=== PATIENT | male | born 1945 | race Caucasian/White ===

== ENCOUNTER 2016-12-18 10:39 | Emergency (ER) | payer MEDICARE, OTHER ==
[~2016-12-18] VITALS: Ht 175.3 cm; Wt 108.9 kg
[2016-12-18 11:00] VITALS: BP 115/56; PULSE 51; RESP 16; TEMP 98.2; O2SAT 99
--- NOTE | 2016-12-18 11:05 | NUR ---
PLACED IN BED 5
--- NOTE | 2016-12-18 11:07 | NUR ---
ER at bedside examining patient.
--- NOTE | 2016-12-18 11:10 | NUR ---
Pt presents to ED c/o LLE pain and brusing to foot .Pt currently taking coumadin. Pt denies syncope , head or neck trauma.Pt declined medication for pain upon assessment. Pt reports taking [employer] prior to ED visit.
[2016-12-18] MEDS ORDERED: HYDROcodone/ACETAMIN 5-325 MG TAB (NORCO/ VICODIN) PO ONE (12:45)
--- NOTE | 2016-12-18 12:46 | NUR ---
Pt medicated for pain. Pt tolerated well.
--- NOTE | 2016-12-18 13:15 | NUR ---
posterior LLE splint applied. Pt tolerated well.
[2016-12-18 13:57] VITALS: BP 118/59; PULSE 62; RESP 16; TEMP 98.2; O2SAT 99
--- NOTE | 2016-12-18 13:57 | NUR ---
Patient given written and verbal discharge instructions and verbalizes understanding. ER MD discussed with patient the results and treatment provided. Given copies of tests performed in ER. Patient in stable condition. ID arm band removed. Patient educated on pain management and to follow up with PMD. Pain Scale 2. Opportunity for questions provided and answered.
== END 2016-12-18 13:57 | disposition home or self-care (01) ==
LOC: SED 10:39
DX: S82.52XA Displaced fracture of medial malleolus of left tibia, initial encounter for closed fracture (principal); J44.9 Chronic obstructive pulmonary disease, unspecified; I10 Essential (primary) hypertension; I48.91 Unspecified atrial fibrillation; Z88.8 Allergy status to other drugs, medicaments and biological substances; W23.0XXA Caught, crushed, jammed, or pinched between moving objects, initial encounter; Y93.89 Activity, other specified; Y99.8 Other external cause status; Y92.89 Other specified places as the place of occurrence of the external cause
CPT/HCPCS: 99284

== ENCOUNTER 2020-08-26 11:03 | Inpatient (IN) | payer OTHER, SELFPAY ==
[~2020-08-26] VITALS: Ht 175.3 cm; Wt 78.0 kg
[~2020-08-26 11:03] MED LIST: APIX5TAB PO; ASPI-1155 PO; CEPH-568 PO; FURO-150 PO; HYDR-4274 PO; HYDR100T25 PO; LIP20 PO; METO-442 PO; SERT100T PO; STA120 PO; TEMA30CA PO; TRIA1KT.2 TP; TRIA80OI TP
[2020-08-26 11:12] VITALS: BP_SYST 120
[2020-08-26 12:24] LABS: EOSINOPHILS # (AUTO) 0.1 K/uL (0.0-0.4); MONOCYTES % (AUTO) 11.5 % (1.7-9.3)
[2020-08-26 12:36] LABS: BASOPHILS # (AUTO) 0.1 K/uL (0.0-0.2); BASOPHILS % (AUTO) 1.2 % (0.0-2.0); HEMATOCRIT 40.6 % (36-54); HEMOGLOBIN 13.2 g/dL (14.0-18.0); INR 1.2 (0.80-1.20); LYMPHOCYTES # (AUTO) 1.3 K/uL (1.0-5.5); LYMPHOCYTES % (AUTO) 15.3 % (20.5-51.5); MEAN CORPUSCULAR HEMOGLOBIN 28 pg (27-31); MEAN CORPUSCULAR HGB CONC 33 % (32-36); MEAN CORPUSCULAR VOLUME 85 fL (79.0-98.0); NEUTROPHILS # (AUTO) 6.2 K/uL (1.8-7.7); PLATELET COUNT (AUTO) 279 K/uL (130-430); PROTHROMBIN TIME 12.6 SECS (9.5-12.5); RED BLOOD CELL COUNT(AUTO) 4.81 MIL/uL (4.2-6.2); RED CELL DISTRIBUTION WIDTH 18.8 % (9.0-15.0); WHITE BLOOD COUNT (AUTO) 8.7 K/uL (4.8-10.8)
[2020-08-26 12:43] LABS: ANION GAP 8 (5-15); CALCIUM 9.2 mg/dL (8.4-11.0); CHLORIDE 104 mmol/L (98-107); CREATININE 1.38 mg/dL (0.55-1.30); GLUCOSE 207 mg/dL (70-99); POTASSIUM 4.4 mmol/L (3.5-5.1); SODIUM SERUM 137 mmol/L (136-145); UREA NITROGEN, BLOOD 23 mg/dL (8-21)
[2020-08-26 12:49] LABS: ALANINE AMINOTRANSFERASE 17 U/L (12-78); ALBUMIN 2.7 g/dL (3.4-4.8); ASPARTATE AMINOTRANSFERASE 41 U/L (10-37); TOTAL BILIRUBIN 0.9 mg/dL (0.0-1.0)
[2020-08-26] MEDS ORDERED: FUROSEMIDE 40 MG/4 ML VIAL IVP ONE (14:30)
[2020-08-26] MEDS ORDERED: VITD400 PO (16:32)
[2020-08-26] MEDS ORDERED: SACU1TAB PO (16:32)
[2020-08-26 17:52] VITALS: BP_SYST 142
[2020-08-26] MEDS: FUROSEMIDE 40 MG/4 ML VIAL IVP SCH (18:29)
[2020-08-26 20:00] VITALS: BP_SYST 134
[2020-08-26] MEDS ORDERED: METOPROLOL TARTRATE 50 MG TABLET PO SCH (21:00)
[2020-08-26] MEDS: cefTRIAXone 1 GM IVPB PREMIX 50 ML IV SCH (21:14)
[2020-08-26] MEDS: TEMAZEPAM 15 MG CAPSULE PO SCH (21:16)
[2020-08-26] MEDS: hydrALAZINE HCL 25 MG TABLET PO SCH (21:18)
[2020-08-26] MEDS: NATEGLINIDE 120 MG TABLET PO SCH (21:18)
[2020-08-26] MEDS: METOPROLOL TARTRATE 50 MG TABLET PO SCH (21:19)
[2020-08-26] MEDS: SACUBITRIL/VALSARTAN 24 MG-26 MG 1 TABLET PO SCH (21:21)
[2020-08-26] MEDS: APIXABAN 2.5 MG TABLET PO SCH (21:21)
[2020-08-27] VITALS (15 sets, daily range): BP systolic 94–131
[2020-08-27] MEDS: FUROSEMIDE 40 MG/4 ML VIAL IVP SCH ×2 (06:23→17:11)
[2020-08-27 06:47] LABS: BASOPHILS # (AUTO) 0.1 K/uL (0.0-0.2); BASOPHILS % (AUTO) 0.9 % (0.0-2.0); EOSINOPHILS # (AUTO) 0.1 K/uL (0.0-0.4); HEMATOCRIT 41.4 % (36-54); HEMOGLOBIN 13.4 g/dL (14.0-18.0); LYMPHOCYTES # (AUTO) 1.4 K/uL (1.0-5.5); MEAN CORPUSCULAR HEMOGLOBIN 28 pg (27-31); MEAN CORPUSCULAR HGB CONC 32 % (32-36); MEAN CORPUSCULAR VOLUME 85 fL (79.0-98.0); MONOCYTES # (AUTO) 0.9 K/uL (0.0-1.0); MONOCYTES % (AUTO) 10.5 % (1.7-9.3); NEUTROPHILS # (AUTO) 6.2 K/uL (1.8-7.7); NEUTROPHILS % (AUTO) 71.6 % (40.0-70.0); PLATELET COUNT (AUTO) 253 K/uL (130-430); RED BLOOD CELL COUNT(AUTO) 4.87 MIL/uL (4.2-6.2); RED CELL DISTRIBUTION WIDTH 18.8 % (9.0-15.0); WHITE BLOOD COUNT (AUTO) 8.7 K/uL (4.8-10.8)
[2020-08-27 07:22] LABS: ALANINE AMINOTRANSFERASE 80 U/L (12-78); ALBUMIN 2.6 g/dL (3.4-4.8); ANION GAP 10 (5-15); ASPARTATE AMINOTRANSFERASE 170 U/L (10-37); CALCIUM 8.9 mg/dL (8.4-11.0); CHLORIDE 104 mmol/L (98-107); CREATININE 1.48 mg/dL (0.55-1.30); GLUCOSE 147 mg/dL (70-99); POTASSIUM 4.2 mmol/L (3.5-5.1); SODIUM SERUM 137 mmol/L (136-145); THYROID STIMULATING HORMONE 2.11 uIu/mL (0.36-3.74); TOTAL BILIRUBIN 1.3 mg/dL (0.0-1.0); UREA NITROGEN, BLOOD 25 mg/dL (8-21)
[2020-08-27] MEDS: hydrALAZINE HCL 25 MG TABLET PO SCH ×2 (09:39→21:00)
[2020-08-27] MEDS: ATORVASTATIN 20 MG TABLET PO SCH (09:39)
[2020-08-27] MEDS: SERTRALINE HCL 50 MG TABLET PO SCH (09:39)
[2020-08-27] MEDS: METOPROLOL TARTRATE 50 MG TABLET PO SCH ×2 (09:40→21:00)
[2020-08-27] MEDS: SACUBITRIL/VALSARTAN 24 MG-26 MG 1 TABLET PO SCH ×2 (09:41→21:00)
[2020-08-27] MEDS: APIXABAN 2.5 MG TABLET PO SCH ×2 (09:42→21:00)
[2020-08-27] MEDS: NATEGLINIDE 120 MG TABLET PO SCH ×3 (09:49→21:00)
[2020-08-27] MEDS: ASPIRIN 81 MG TAB.CHEW PO SCH (09:50)
[2020-08-27] MEDS: AZITHROMYCIN 500 MG in NS 250 ML IV SCH (12:10)
[2020-08-27] MEDS: cefTRIAXone 1 GM IVPB PREMIX 50 ML IV SCH (20:00)
[2020-08-27] MEDS: TEMAZEPAM 15 MG CAPSULE PO SCH (21:00)
[2020-08-27] MEDS ORDERED: PROPOFOL DRIP 100 ML IV ONE ×2 (22:59→23:23)
[2020-08-27] MEDS ORDERED: ATROPINE SULFATE 1 MG/10 ML SYRINGE IVP ONE ×2 (23:30→23:31)
[2020-08-28] VITALS (35 sets, daily range): BP systolic 62–155
[2020-08-28] MEDS ORDERED: NOREPINEPHRINE BITARTRATE 4 MG in D5W 246 ML IV PRN ×2
[2020-08-28] MEDS ORDERED: NOREPINEPHRINE 4 MG/4 ML VIAL IV ONE (00:08)
[2020-08-28] MEDS: FUROSEMIDE 40 MG/4 ML VIAL IVP SCH (06:00)
[2020-08-28 06:16] LABS: BASOPHILS # (AUTO) 0.1 K/uL (0.0-0.2); BASOPHILS % (AUTO) 0.4 % (0.0-2.0); HEMATOCRIT 39.1 % (36-54); HEMOGLOBIN 12.5 g/dL (14.0-18.0); LYMPHOCYTES # (AUTO) 0.6 K/uL (1.0-5.5); LYMPHOCYTES % (AUTO) 4.5 % (20.5-51.5); MEAN CORPUSCULAR HEMOGLOBIN 27 pg (27-31); MEAN CORPUSCULAR HGB CONC 32 % (32-36); MEAN CORPUSCULAR VOLUME 85 fL (79.0-98.0); MONOCYTES # (AUTO) 0.8 K/uL (0.0-1.0); MONOCYTES % (AUTO) 5.4 % (1.7-9.3); NEUTROPHILS # (AUTO) 12.8 K/uL (1.8-7.7); NEUTROPHILS % (AUTO) 89.7 % (40.0-70.0); PLATELET COUNT (AUTO) 228 K/uL (130-430); RED BLOOD CELL COUNT(AUTO) 4.59 MIL/uL (4.2-6.2); RED CELL DISTRIBUTION WIDTH 18.5 % (9.0-15.0); WHITE BLOOD COUNT (AUTO) 14.2 K/uL (4.8-10.8)
[2020-08-28 06:30] LABS: ALANINE AMINOTRANSFERASE 248 U/L (12-78); ANION GAP 15 (5-15); ASPARTATE AMINOTRANSFERASE 732 U/L (10-37); CALCIUM 8.5 mg/dL (8.4-11.0); CHLORIDE 103 mmol/L (98-107); CREATININE 2.44 mg/dL (0.55-1.30); GLUCOSE 244 mg/dL (70-99); POTASSIUM 4.4 mmol/L (3.5-5.1); SODIUM SERUM 136 mmol/L (136-145); TOTAL BILIRUBIN 0.9 mg/dL (0.0-1.0); UREA NITROGEN, BLOOD 43 mg/dL (8-21)
[2020-08-28] MEDS ORDERED: EPINEPHrine JECT 0.1 MG/ML SYR IVP ONE (08:32)
[2020-08-28] MEDS: ATORVASTATIN 20 MG TABLET PO SCH (08:54)
[2020-08-28] MEDS: APIXABAN 2.5 MG TABLET PO SCH ×2 (08:54→20:40)
[2020-08-28] MEDS: ASPIRIN 81 MG TAB.CHEW PO SCH (08:56)
[2020-08-28] MEDS: hydrALAZINE HCL 25 MG TABLET PO SCH (08:56)
[2020-08-28] MEDS: SACUBITRIL/VALSARTAN 24 MG-26 MG 1 TABLET PO SCH ×2 (08:57→20:41)
[2020-08-28] MEDS: METOPROLOL TARTRATE 50 MG TABLET PO SCH (08:57)
[2020-08-28] MEDS: NATEGLINIDE 120 MG TABLET PO SCH (08:58)
[2020-08-28] MEDS: SERTRALINE HCL 50 MG TABLET PO SCH (08:58)
[2020-08-28] MEDS: AZITHROMYCIN 500 MG in NS 250 ML IV SCH (11:51)
[2020-08-28] MEDS ORDERED: EPINEPHrine JECT 0.1 MG/ML SYR ONE (12:19)
[2020-08-28] MEDS ORDERED: CALCIUM CHLORIDE 1 GM/10 ML DISP.SYRIN (14 mEq Ca++/SYR) ONE (12:19)
[2020-08-28] MEDS: PROPOFOL DRIP 100 ML IV PRN ×2 (14:26)
[2020-08-28] MEDS: TEMAZEPAM 15 MG CAPSULE PO SCH (20:40)
[2020-08-28] MEDS: cefTRIAXone 1 GM IVPB PREMIX 50 ML IV SCH (20:40)
[2020-08-29] VITALS (35 sets, daily range): BP systolic 85–172
[2020-08-29 06:54] LABS: BASOPHILS % (AUTO) 0.2 % (0.0-2.0); EOSINOPHILS % (AUTO) 0.2 % (0.0-4.0); HEMATOCRIT 38.9 % (36-54); HEMOGLOBIN 12.6 g/dL (14.0-18.0); LYMPHOCYTES # (AUTO) 0.8 K/uL (1.0-5.5); LYMPHOCYTES % (AUTO) 6.8 % (20.5-51.5); MEAN CORPUSCULAR HEMOGLOBIN 27 pg (27-31); MEAN CORPUSCULAR HGB CONC 32 % (32-36); MEAN CORPUSCULAR VOLUME 84 fL (79.0-98.0); MONOCYTES # (AUTO) 0.9 K/uL (0.0-1.0); MONOCYTES % (AUTO) 7.2 % (1.7-9.3); NEUTROPHILS # (AUTO) 10.3 K/uL (1.8-7.7); NEUTROPHILS % (AUTO) 85.6 % (40.0-70.0); PLATELET COUNT (AUTO) 223 K/uL (130-430); RED BLOOD CELL COUNT(AUTO) 4.63 MIL/uL (4.2-6.2); RED CELL DISTRIBUTION WIDTH 18.7 % (9.0-15.0); WHITE BLOOD COUNT (AUTO) 12.1 K/uL (4.8-10.8)
[2020-08-29 07:48] LABS: ALANINE AMINOTRANSFERASE 216 U/L (12-78); ALBUMIN 1.8 g/dL (3.4-4.8); ANION GAP 12 (5-15); CALCIUM 8.2 mg/dL (8.4-11.0); CHLORIDE 104 mmol/L (98-107); CREATININE 3.13 mg/dL (0.55-1.30); GLUCOSE 124 mg/dL (70-99); POTASSIUM 3.6 mmol/L (3.5-5.1); SODIUM SERUM 138 mmol/L (136-145); TOTAL BILIRUBIN 0.7 mg/dL (0.0-1.0); UREA NITROGEN, BLOOD 59 mg/dL (8-21)
[2020-08-29 08:05] LABS: ASPARTATE AMINOTRANSFERASE 241 U/L (10-37)
[2020-08-29] MEDS ORDERED: NACL 0.9% 1,000 ML IV SCH (09:15)
[2020-08-29] MEDS: SERTRALINE HCL 50 MG TABLET PO SCH (09:24)
[2020-08-29] MEDS: ATORVASTATIN 20 MG TABLET PO SCH (09:25)
[2020-08-29] MEDS: APIXABAN 2.5 MG TABLET PO SCH ×2 (09:25→20:36)
[2020-08-29] MEDS: ASPIRIN 81 MG TAB.CHEW PO SCH (09:27)
[2020-08-29] MEDS: SACUBITRIL/VALSARTAN 24 MG-26 MG 1 TABLET PO SCH ×2 (09:27→20:36)
[2020-08-29] MEDS ORDERED: ASPIRIN 81 MG TAB.CHEW ONE (09:27)
[2020-08-29] MEDS: AZITHROMYCIN 500 MG in NS 250 ML IV SCH (10:03)
[2020-08-29] MEDS: PROPOFOL DRIP 100 ML IV PRN (10:06)
[2020-08-29] MEDS ORDERED: ALBUMIN HUMAN 5% 500 ML IV ONE (16:45)
[2020-08-29] MEDS ORDERED: NALOXONE HCL 0.4 MG/ML AMP (NARCAN) IVP PRN (18:15)
[2020-08-29] MEDS ORDERED: LORazepam 2 MG/ML VIAL IVP PRN (18:15)
[2020-08-29] MEDS ORDERED: MORPHINE I.V. DRIP 100 ML IV PRN (18:15)
[2020-08-29] MEDS: cefTRIAXone 1 GM IVPB PREMIX 50 ML IV SCH (20:00)
[2020-08-29] MEDS: TEMAZEPAM 15 MG CAPSULE PO SCH (20:36)
[2020-08-30] VITALS: BP_SYST 120
[2020-08-30 01:00] VITALS: BP_SYST 0
[2020-08-30 01:14] VITALS: BP_SYST 0
== END 2020-08-30 01:14 | disposition expired | DRG 871 ==
LOC: SED 11:03 → STU 14:44 → SIC 08-27 21:31
PROVIDERS: ADMIT Internal Medicine Hospice and Palliative Medicine; ATTEND Internal Medicine Hospice and Palliative Medicine
PROC: 5A1945Z Respiratory Ventilation, 24-96 Consecutive Hours (ICD-10-PCS; principal; 2020-08-27)
PROC: 0BH17EZ Insertion of Endotracheal Airway into Trachea, Via Natural or Artificial Opening (ICD-10-PCS; 2020-08-27)
PROC: 05HY33Z Insertion of Infusion Device into Upper Vein, Percutaneous Approach (ICD-10-PCS; 2020-08-27)
PROC: B54MZZA Ultrasonography of Right Upper Extremity Veins, Guidance (ICD-10-PCS; 2020-08-27)
PROC: 5A12012 Performance of Cardiac Output, Single, Manual (ICD-10-PCS; 2020-08-30)
DX: A41.9 Sepsis, unspecified organism (principal); J96.00 Acute respiratory failure, unspecified whether with hypoxia or hypercapnia; I50.43 Acute on chronic combined systolic (congestive) and diastolic (congestive) heart failure; J18.9 Pneumonia, unspecified organism; J44.1 Chronic obstructive pulmonary disease with (acute) exacerbation; I48.20 Chronic atrial fibrillation, unspecified; N17.9 Acute kidney failure, unspecified; I11.0 Hypertensive heart disease with heart failure; I46.9 Cardiac arrest, cause unspecified; Z66 Do not resuscitate; Z51.5 Encounter for palliative care; I25.10 Atherosclerotic heart disease of native coronary artery without angina pectoris; I25.5 Ischemic cardiomyopathy; E11.51 Type 2 diabetes mellitus with diabetic peripheral angiopathy without gangrene; Z20.828 Contact with and (suspected) exposure to other viral communicable diseases; F17.210 Nicotine dependence, cigarettes, uncomplicated; Z88.8 Allergy status to other drugs, medicaments and biological substances; Z79.82 Long term (current) use of aspirin; Z79.899 Other long term (current) drug therapy; Z79.891 Long term (current) use of opiate analgesic; Z79.01 Long term (current) use of anticoagulants
CPT/HCPCS: 36415; 36600; 71045; 80053; 82550-TC; 82803-TC; 83880; 84443-TC; 84484; 85025; 85610-TC; 92950; 93005; 93306; 94002; 94003; 94640; 96374; 99285; G0378; J0171; J0456; J0461; J0696; J1940; J2060; J2270; J2704; J7030; J7050; J7060; P9041; U0003